=== PATIENT | female | born 1985 | race Caucasian/White ===

== ENCOUNTER 2016-06-23 10:49 | Emergency (ER) | payer MEDICAID ==
--- NOTE | 2016-06-23 12:14 | ER NURSING DOCUMENTATION ---
Nurse's Notes [facility] Name:Katie Kimball Age:31 yrs Sex:Female :1985 Arrival Date:06/23/2016 Time:10:49 Bed3 Private MD:Cesar Anthony Diagnosis:Panic Disorder Presentation: 06/23 11:02 Presenting complaint: Patient states: Anxiety. Transition of care: Home. lp 11:02 Method Of Arrival: Walk In lp 11:02 Acuity: SETH 3 lp Triage Assessment: 11:15 General: Appears distressed, Behavior is anxious. Pain: Denies pain. lp 11:22 EENT: No deficits noted. Neuro: No deficits noted. Cardiovascular: No deficits noted. lp Respiratory: No deficits noted. GI: No deficits noted. : No deficits noted. Derm: No deficits noted. Historical: - Home Meds: 1. Lexapro 20 mg oral tab 1 tab once daily for Generalized Anxiety Disorder 2. gabapentin 600 mg oral tab 1 tab 3 times per day for Anxiety/Depression 3. Adderall XR 10 mg oral cp24 1 cap once daily upon awakening for Narcolepsy Syndrome - PMHx: narcolepsy; DEPRESSION; ANXIETY; pulmonary sequestration; - PSHx: IUD placement; - Tetanus: < 10 years. - Ebola Screening: : Patient negative for fever greater than or equal to 101.5 degrees Fahrenheit, and additional compatible Ebola Virus Disease symptoms. Patient denies exposure to infectious person. Patient denies travel to an Ebola-affected area in the 21 days before illness onset. . - Immunization history: Flu Vaccine None. - Social history: Smoking status: Patient states was never smoker of tobacco. Screenin:22 Infectious Disease Risk None. Abuse screen: Denies threats or abuse. Denies injuries lp from another. Nutritional screening: No deficits noted. Suicide Risk Assessment: Suicidal Thinking Present - No ( 0 points), Past Attempts - No (0 points), Family History of Suicide - No (0 points), Credible Suicide Plan - No (0 points), Means to Kill Self Available - No (0 points), Has Serious Health Problem - No ( 0 points), Lives Alone - No (0 points), Will Contract for Safety - Total Suicide Risk Assessment Score:. Assessment: 11:22 See Triage Assessment done by same RN. lp Vital Signs: 11:10 BP 123 / 90; Pulse 88; Resp 16; Temp 97.8(O); Pulse Ox 98% on R/A; Weight 61.23 kg; lp Height 5 ft. 3 in. (160.02 cm); Pain 0/10; 11:10 Body Mass Index 23.91 (61.23 kg, 160.02 cm) lp ED Course: 10:53 Patient arrived in ED. lm3 10:54 Cesar Anthony MD is Private Physician. lm3 11:02 Violette Nunn RN is Primary Nurse. lp 11:02 Triage completed. lp 11:[address] Mcgee notified. lp 11:23 Valuables Remains with patient Patient has correct armband on for positive lp identification. Bed in low position. Call light in reach. 11:39 Jeevan Mcgee MD is Attending Physician. sc 12:02 Cesar Anthony MD is Referral Physician. sc Administered Medications: No medications were administered Outcome: 11:59 Discharged to home ambulatory. lp 11:59 Condition: good 11:59 Instructed on discharge instructions, medication usage. 12:02 Discharge ordered by . sc 12:13 Patient left the ED. lp Signatures: Violette Nunn RN RN Jeevan Mcgee MD MD fl Mohini Conroy lm3
--- NOTE | 2016-06-23 12:14 | ER PHYSICIAN DOCUMENTATION ---
Physician Documentation [facility] Name:Katie Kimball Age:31 yrs Sex:Female :1985 Arrival Date:06/23/2016 Time:10:49 Bed3 Private MD:Cesar Anthony EDtedJeevan Disposition: 06/23/16 12:02 Discharged to Home/Self Care. Impression: Panic Disorder. - Condition is Good. - Discharge Instructions: HYPERVENTILATION SYNDROME, PANIC ATTACK. - Prescriptions for Ativan 1 mg Oral - take 1 tablet by ORAL route every 8 hours As needed; 6 tablet. - Medical Reconciliation form form. - Follow up: Cesar Anthony MD; When: As needed; Reason: If symptoms return. - Problem is an acute exacerbation. - Symptoms have improved. HPI: 06/23 11:59 This 31 yrs old Female presents to ER via Walk In with complaints of Anxiety. wv 11:59 The patient presents to the emergency department with anxiety, over unknown wv circumstances. Onset: The symptom(s)/episode began/occurred yesterday. Past psychiatric history: Prior diagnosis: post anxiety, Psychiatric medications include: Lexapro. Associated signs and symptoms: The patient has no apparent associated signs or symptoms. Severity of symptoms: At their worst the symptoms were moderate. The patient has experienced similar episodes in the past, chronically. Historical: - Home Meds: 1. Lexapro 20 mg oral tab 1 tab once daily for Generalized Anxiety Disorder 2. gabapentin 600 mg oral tab 1 tab 3 times per day for Anxiety/Depression 3. Adderall XR 10 mg oral cp24 1 cap once daily upon awakening for Narcolepsy Syndrome - PMHx: narcolepsy; DEPRESSION; ANXIETY; pulmonary sequestration; - PSHx: IUD placement; - Tetanus: < 10 years. - Ebola Screening: : Patient negative for fever greater than or equal to 101.5 degrees Fahrenheit, and additional compatible Ebola Virus Disease symptoms. Patient denies exposure to infectious person. Patient denies travel to an Ebola-affected area in the 21 days before illness onset. . - Immunization history: Flu Vaccine None. - Social history: Smoking status: Patient states was never smoker of tobacco. ROS: 12:00 Constitutional: Negative for fever, chills, and weight loss. sc Eyes: Negative for injury, pain, redness, and discharge. Neck: Negative for injury, pain, and swelling. Cardiovascular: Negative for chest pain, palpitations, and edema. Respiratory: Negative for shortness of breath, cough, wheezing, and pleuritic chest pain. Abdomen/GI: Negative for abdominal pain, nausea, vomiting, diarrhea, and constipation. Back: Negative for injury and pain. MS/Extremity: Negative for injury and deformity. 12:00 Skin: Negative for injury, rash, and discoloration. sc 12:00 Psych: Positive for anxiety. Exam: Constitutional: This is a well developed, well nourished patient who is awake, alert, and in no acute distress. Head/Face: Normocephalic, atraumatic. Eyes: Pupils equal round and reactive to light, extra-ocular motions intact. Lids and lashes normal. Conjunctiva and sclera are non-icteric and not injected. Cornea within normal limits. Periorbital areas with no swelling, redness, or edema. Cardiovascular: Regular rate and rhythm with a normal S1 and S2. No gallops, murmurs, or rubs. Normal PMI, no JVD. No pulse deficits. Respiratory: Lungs have equal breath sounds bilaterally, clear to auscultation and percussion. No rales, rhonchi or wheezes noted. No increased work of breathing, no retractions or nasal flaring. Abdomen/GI: Soft, non-tender, with normal bowel sounds. No distension or tympany. No guarding or rebound. No evidence of tenderness throughout. 12:00 Back: No spinal tenderness. No costovertebral tenderness. Full range of motion. wv 12:00 Psych: Behavior/mood is pleasant, cooperative, anxious, Affect is animated, Oriented to person, place, time, Patient has no thoughts/intents to harm self or others. Vital Signs: 11:10 BP 123 / 90; Pulse 88; Resp 16; Temp 97.8(O); Pulse Ox 98% on R/A; Weight 61.23 kg; lp Height 5 ft. 3 in. (160.02 cm); Pain 0/10; 11:10 Body Mass Index 23.91 (61.23 kg, 160.02 cm) lp MDM: 11:39 Patient medically screened. wv 12:01 Differential diagnosis: panic attack last benzos in April, inbetween mental health [facility] providers and recently told have to move. Data reviewed: vital signs, nurses notes, and as a result, I will discharge patient. Counseling: I had a detailed discussion with the patient and/or guardian regarding: the historical points, exam findings, and any diagnostic results supporting the discharge/admit diagnosis, the need for outpatient follow up, for a referral to a specialist, to return to the emergency department if symptoms worsen or persist or if there are any questions or concerns that arise at home. Dispensed Medications: No medications were administered Signatures: Violette Nunn, RN RN Jeevan Mcgee MD MD wv
== END 2016-06-23 12:14 | disposition home or self-care (01) ==
LOC: ER 10:49
DX: F41.0 Panic disorder [episodic paroxysmal anxiety] (principal); Z79.899 Other long term (current) drug therapy
CPT/HCPCS: 99281